=== PATIENT | female | born 1955 | race American Indian/Alaskan Native ===

== ENCOUNTER 2016-09-28 18:23 | Emergency (ER) | payer MEDICARE ==
[2016-09-28 20:29] LABS: Basophils % (Auto) 0.5 % (0.0-1.8); Eosinophils % (Auto) 0.3 % (0.0-4.3); Hematocrit 35.7 % (30.3-42.9); Hemoglobin 11.6 gm/dl (10.1-14.3); Mean Corpuscular HGB Conc 32 % (30-34); Mean Corpuscular Hemoglobin 31 pg (28-32); Mean Corpuscular Volume 95 fl (79-97); Platelet Count 194 K/mm3 (140-440); Red Blood Count 3.76 M/mm3 (3.65-5.03); Red Cell Distribution Width 13.4 % (13.2-15.2)
[2016-09-28 20:41] LABS: Anion Gap 19 mmol/L; BUN/Creatinine Ratio 14.44; Blood Urea Nitrogen 13 mg/dL (7-17); Calcium 9.4 mg/dL (8.4-10.2); Carbon Dioxide 25 mmol/L (22-30); Chloride 99.4 mmol/L (98-107); Glucose 104 mg/dL (65-100); Potassium 3.8 mmol/L (3.6-5.0); Sodium 140 mmol/L (137-145)
--- NOTE | 2016-09-28 21:54 | Emergency Department Report ---
- General Chief Complaint: Upper Respiratory Infection Stated Complaint: DIZZINESS/SLIGHT HEADACHE Time Seen by Provider: 09/28/16 21:54 Source: patient, EMS Mode of arrival: Ambulatory Limitations: No Limitations - History of Present Illness Initial Comments: 52-year-old female who presents emergency with complaints of sinus congestion, nasal congestion and yellow productive cough for last 3 days. Patient has history of chronic sinusitis. Denies any dizziness or light headedness. Patient also complaints of light chest tightness increased with cough. MD Complaint: cough, sore throat, rhinorrhea, nasal congestion, sinus pain -: Gradual, days(s) Severity: mild Severity scale (0 -10): 3 Quality: dull, aching Consistency: constant Improves With: nothing Worsens With: activity, deep breaths Associated Symptoms: headache, rhinorrhea, nasal congestion, sore throat, cough Treatments Prior to Arrival: none - Related Data Previous Rx's Medication Instructions Recorded Last Taken Type Azithromycin [Zithromax TAB] 500 mg PO QDAY #3 tablet 09/28/16 Unknown Rx Cetirizine HCl [ZyrTEC] 10 mg PO DAILY #20 tab.chew 09/28/16 Unknown Rx predniSONE [Deltasone] 40 mg PO QDAY #10 tab 09/28/16 Unknown Rx Allergies Allergy/AdvReac Type Severity Reaction Status Date / Time No Known Allergies Allergy Unverified 12/25/13 15:54 ED Review of Systems ROS: Stated complaint: DIZZINESS/SLIGHT HEADACHE Other details as noted in HPI Comment: All other systems reviewed and negative Constitutional: denies: chills, fever Eyes: denies: eye pain, eye discharge, vision change ENT: as per HPI, throat pain, congestion. denies: ear pain Respiratory: cough, shortness of breath. denies: wheezing Cardiovascular: denies: chest pain, palpitations Endocrine: no symptoms reported Gastrointestinal: denies: abdominal pain, nausea, diarrhea Genitourinary: denies: urgency, dysuria, discharge Musculoskeletal: denies: back pain, joint swelling, arthralgia Skin: denies: rash, lesions Neurological: denies: headache, weakness, paresthesias Psychiatric: denies: anxiety, depression Hematological/Lymphatic: denies: easy bleeding, easy bruising ED Past Medical Hx - Past Medical History Previous Medical History?: Yes Hx Hypertension: Yes - Surgical History Past Surgical History?: No - Social History Smoking Status: Unknown if ever smoked - Medications Home Medications: Home Medications Medication Instructions Recorded Confirmed Last Taken Type Azithromycin [Zithromax TAB] 500 mg PO QDAY #3 tablet 09/28/16 Unknown Rx Cetirizine HCl [ZyrTEC] 10 mg PO DAILY #20 tab.chew 09/28/16 Unknown Rx predniSONE [Deltasone] 40 mg PO QDAY #10 tab 09/28/16 Unknown Rx ED Physical Exam - General Limitations: No Limitations General appearance: alert, in no apparent distress - Head Head exam: Present: atraumatic, normocephalic, other (bilateral frontal sinus tenderness) - Eye Eye exam: Present: normal appearance, PERRL, EOMI Pupils: Present: normal accommodation - ENT ENT exam: Present: normal exam, mucous membranes moist - Neck Neck exam: Present: normal inspection, full ROM - Respiratory Respiratory exam: Present: normal lung sounds bilaterally, chest wall tenderness. Absent: respiratory distress, wheezes, rales, rhonchi, stridor - Cardiovascular Cardiovascular Exam: Present: regular rate, normal rhythm. Absent: systolic murmur, diastolic murmur, rubs, gallop - GI/Abdominal GI/Abdominal exam: Present: soft, normal bowel sounds. Absent: guarding, rebound, mass - Extremities Exam Extremities exam: Present: normal inspection, full ROM - Back Exam Back exam: Present: normal inspection, full ROM - Neurological Exam Neurological exam: Present: alert, oriented X3 - Psychiatric Psychiatric exam: Present: normal affect, normal mood - Skin Skin exam: Present: warm, dry, intact, normal color. Absent: rash ED Course Vital Signs 09/28/16 09/29/16 20:03 00:18 Temperature 99.3 F 98.7 F Pulse Rate 82 76 Respiratory 20 20 Rate Blood Pressure 156/86 161/86 [Right] O2 Sat by Pulse 97 96 Oximetry - Reevaluation(s) Reevaluation #1: Patient states he does not have any chest chest discomfort after given a shot of Decadron. Continuing sinus pressure. Denies any shortness of breath. Patient feels comfortable to be discharged home. 09/28/16 23:32 ED Medical Decision Making - Lab Data Result diagrams: 09/28/16 20:05 09/28/16 20:05 - EKG Data EKG shows normal: sinus rhythm (ocassional PVC) - EKG Data When compared to previous EKG there are: changes noted (since 2014, occasional PVC) - Radiology Data Radiology results: report reviewed, image reviewed (no acute findings) Critical care attestation.: If time is entered above; I have spent that time in minutes in the direct care of this critically ill patient, excluding procedure time. ED Disposition Clinical Impression: Sinusitis chronic, frontal, Bronchospasm, acute Acute bronchitis Qualifiers: Bronchitis organism: unspecified organism Qualified Code(s): J20.9 - Acute bronchitis, unspecified Disposition: DISCHARGED TO HOME OR SELFCARE Is pt being admited?: No Does the pt Need Aspirin: No Condition: Good Instructions: Acute Bronchitis (ED), Bronchospasm (ED) Prescriptions: Azithromycin [Zithromax TAB] 500 mg PO QDAY #3 tablet Cetirizine HCl [ZyrTEC] 10 mg PO DAILY #20 tab.chew predniSONE [Deltasone] 40 mg PO QDAY #10 tab Referrals: PRIMARY CARE, [Primary Care Provider] - 3-5 Days
[2016-09-28] MEDS ORDERED: DECADRON IV ONE (22:11)
[2016-09-28] MEDS ORDERED: ROCEPHIN/NS 1 GM/50 ML 1 GM/50 ML BAG IV ONE (22:11)
[2016-09-28] MEDS ORDERED: ZITHROMAX PO ONE (22:11)
[2016-09-29 00:18] VITALS: BP 161/86
--- NOTE | 2016-09-29 07:36 | XRay Report ---
Chest 2 views: History: Shortness of breath. Findings: Cardiomegaly. Trachea is midline. No consolidation, pneumothorax or pleural effusion. Impression: No acute cardiopulmonary findings.
== END 2016-09-29 00:18 | disposition home or self-care (01) ==
LOC: ED 18:23
DX: J20.9 Acute bronchitis, unspecified (principal); J32.1 Chronic frontal sinusitis; I10 Essential (primary) hypertension
CPT/HCPCS: 36415; 71020; 80048; 84484; 85025; 93005; 93010; 96365; 96375; 99284; J0696; J1100